=== PATIENT | female | born 1955 | race African-American/Black ===

== ENCOUNTER 2021-01-22 21:48 | Emergency (ER) | payer OTHER ==
[2021-01-22 21:59] VITALS: BMI 33.9
[2021-01-22] MEDS ORDERED: methylPREDNISolone NA SUCC 125 MG/2 ML VIAL IVPUSH ONE (22:23)
[2021-01-22] MEDS ORDERED: FAMOTIDINE 20 MG/50 ML IVPB 20 MG/50 ML MG IVPB ONE ×2 (22:23→22:34)
[2021-01-22] MEDS ORDERED: methylPREDNISolone NA SUCC 125 MG/2 ML VIAL ONE (22:33)
[2021-01-22] MEDS ORDERED: EPINEPHrine 1:1,000 0.3 MG/0.3 ML SYR IM ONE (23:05)
[2021-01-22] MEDS ORDERED: EPINEPHrine/PF 1 MG/1 ML (1:1,000) AMPULE ONE (23:32)
[2021-01-22 23:51] LABS: BASO % 0.5 % (0-2.0); EOS % 1.1 % (0-4.5); HEMATOCRIT 37.6 % (32.4-45.2); HEMOGLOBIN 12.6 GM/dL (10.7-15.3); LYMPH % 22.5 % (8-40); MCH 30.3 pg (25.7-33.7); MCHC 33.6 g/dl (32.0-36.0); MEAN CELL VOLUME 90.2 fl (80-96); MEAN PLT VOLUME 9.8 fl (7.5-11.1); MONO % 6.6 % (3.8-10.2); NEUT % 69.3 % (42.8-82.8); PLATELET COUNT 297 K/MM3 (134-434); RBC 4.17 M/mm3 (3.60-5.2); RDW 14.4 % (11.6-15.6); WHITE BLOOD COUNT 11.3 K/mm3 (4.0-10.0)
[2021-01-22 23:57] LABS: INR 0.91 (0.83-1.09); PROTHROMBIN TIME (PATIENT) 11.2 SEC (9.7-13.0)
[2021-01-22 23:59] LABS: ACTIVATED PTT 34.2 SECONDS (25.2-36.5)
[2021-01-23 00:21] LABS: ALBUMIN 4.4 g/dl (3.4-5.0); BLOOD UREA NITROGEN 18.2 mg/dL (7-18); CALCIUM 9.4 mg/dL (8.5-10.1)
[2021-01-23 00:24] LABS: CREATININE 1.1 mg/dL (0.55-1.3)
[2021-01-23 00:26] LABS: BILIRUBIN,TOTAL 0.3 mg/dL (0.2-1)
[2021-01-23 01:04] VITALS: BP 121/65; PULSE 74; TEMP 98.9
== END 2021-01-23 00:44 | disposition short-term general hospital (02) ==
LOC: JER 21:48
PROC: 3E023GC Introduction of Other Therapeutic Substance into Muscle, Percutaneous Approach (ICD-10-PCS; principal; 2021-01-22)
PROC: 3E033GC Introduction of Other Therapeutic Substance into Peripheral Vein, Percutaneous Approach (ICD-10-PCS; 2021-01-22)
PROC: 3E033GC Introduction of Other Therapeutic Substance into Peripheral Vein, Percutaneous Approach (ICD-10-PCS; 2021-01-22)
DX: T78.3XXA Angioneurotic edema, initial encounter (principal)
CPT/HCPCS: 36415; 71045-TC-FY; 80053; 85025; 85610; 85730; 93005; 93010; 99285-25

== ENCOUNTER 2022-01-17 01:12 | Emergency (ER) | payer OTHER ==
[2022-01-17 01:31] VITALS: BP 167/86; PULSE 77; TEMP 98.2; BMI 34.5
[2022-01-17] MEDS ORDERED: methylPREDNISolone NA SUCC 125 MG/2 ML VIAL IVPB ONE (01:43)
[2022-01-17] MEDS ORDERED: methylPREDNISolone NA SUCC 125 MG/2 ML VIAL ONE (02:04)
[2022-01-17 02:11] LABS: BASO % 0.7 % (0-2.0); EOS % 0.6 % (0-4.5); HEMATOCRIT 36.3 % (32.4-45.2); LYMPH % 18.1 % (8-40); MCH 29.4 pg (25.7-33.7); MEAN CELL VOLUME 89.1 fl (80-96); MEAN PLT VOLUME 9.1 fl (7.5-11.1); MONO % 7.1 % (3.8-10.2); NEUT % 73.5 % (42.8-82.8); PLATELET COUNT 293 10^3/uL (134-434); RBC 4.07 M/mm3 (3.60-5.2); RDW 14.4 % (11.6-15.6); WHITE BLOOD COUNT 11.3 K/mm3 (4.0-10.0)
[2022-01-17 02:32] LABS: CALCIUM 9.4 mg/dL (8.5-10.1)
[2022-01-17 02:33] LABS: ALBUMIN 4.4 g/dl (3.4-5.0)
[2022-01-17 02:36] LABS: CREATININE 0.9 mg/dL (0.55-1.3)
[2022-01-17 02:37] LABS: BILIRUBIN,TOTAL 0.3 mg/dL (0.2-1); TOT PROT 7.8 g/dl (6.4-8.2)
== END 2022-01-17 04:31 | disposition home or self-care (01) ==
LOC: JER 01:12
PROC: 3E033GC Introduction of Other Therapeutic Substance into Peripheral Vein, Percutaneous Approach (ICD-10-PCS; principal; 2022-01-17)
DX: R22.0 Localized swelling, mass and lump, head (principal); T78.40XA Allergy, unspecified, initial encounter
CPT/HCPCS: 36415; 80053; 85025; 93005; 93010; 99284-25; C9803-CS; U0003; U0005